=== PATIENT | male | born 1960 | race Caucasian/White ===

== ENCOUNTER 2017-01-24 18:15 | Emergency (ER) | payer BC, OTHER ==
[2017-01-24 18:38] VITALS: BP 117/96; PULSE 93; RESP 18; TEMP 98; O2SAT 99
[2017-01-24] MEDS ORDERED: NS 1,000 ML IV ONE (18:41)
[2017-01-24] MEDS ORDERED: KETOROLAC 30 MG/1 ML SDV IVP ONE (18:45)
[2017-01-24] MEDS ORDERED: ONDANSETRON 4 MG/2 ML VIAL IVP ONE (18:45)
--- NOTE | 2017-01-24 18:51 | UCPHY ---
H & P Patient Type: New Chief Complaint Nursing Narrative: c/o 3 days of N/V/D Time Seen by Provider: 01/24/17 18:45 HPI/ROS: This patient complains of feeling over the past 48-72 hours. He noticed a cough starting Saturday, 2 days prior to arrival. He has associated myalgias. He describes left shoulder pain as well that is moderate to severe after a rotator cuff surgical repair earlier in the month. He has not been able to take his tramadol due to nausea and vomiting associated with the symptoms. He also developed loose stools starting today with 4 episodes of loose brown stool. He has associated fatigue. ROS: No high fevers or chills. HEENT: He denies any headache. No nasal congestion. Pulmonary: No shortness of breath. No pleuritic pain. He does complain of chest wall and upper belly wall tenderness or pain due to frequent coughing-feels this is muscular. Cardiovascular: No lightheadedness. No calf swelling or pain. GI: No lower belly pain. : Reports mild testicular ache bilaterally. He has noticed any dysuria. He has mild back pain he thinks is muscular. 10 point ROS is otherwise negative. Source: Patient - Personal History Current Tetanus Diphtheria and Acellular Pertussis (TDAP): Yes - Medical/Surgical History PMH: Left rotator cuff surgical repair early in January. Otherwise healthy Other PMH: Lt shoulder surg - Family History Significant Family History: No pertinent family hx - Social History Smoking Status: Never smoked Alcohol Use: Occasionally Drug Use: None Additional Social History: No recent foreign travel - Physical Exam Exam: General Appearance: Alert, no distress. Eyes: Pupils equal and round no pallor or injection. ENT, Mouth: Mucous membranes moist. Respiratory: Clear to auscultation bilaterally. No rales, rhonchi wheezes are noted. Cardiovascular: Regular rate and rhythm. Gastrointestinal: Mild bilateral upper belly tenderness that he attributes to muscle pain from coughing. No organomegaly. No lower belly tenderness. Back: No CVA tenderness : No testicular tenderness Neurological: GCS 15 with no deficits Skin: Warm and dry, no rashes. Musculoskeletal: Neck is supple nontender. Extremities atraumatic normal except for left shoulder Left shoulder: Patient has tenderness at the apex of the shoulder with limited range of motion. Psychiatric: Mood and affect are normal DIFFERENTIAL DIAGNOSIS: After history and physical exam differential diagnosis was considered for influenza, pneumonia, bronchitis, gastroenteritis, doubt surgical site infection, prostatitis, epididymitis, pyelonephritis Constitutional: Initial Vital Signs Temperature (C) 36.6 C 01/24/17 18:35 Heart Rate 93 01/24/17 18:35 Respiratory Rate 18 01/24/17 18:35 Blood Pressure 117/96 H 01/24/17 18:35 O2 Sat (%) 99 01/24/17 18:35 O2 Delivery Mode Room Air Allergies/Adverse Reactions: acetaminophen [From Percocet] Allergy (Verified 01/24/17 18:34) oxycodone HCl [From Percocet] Allergy (Verified 01/24/17 18:34) Penicillins Allergy (Verified 01/24/17 18:34) tramadol Allergy (Verified 01/24/17 18:34) Home Medications: Medication Instructions Recorded Guaifenesin/Codeine Phosphate 5 - 10 ml PO Q6 PRN #120 ml 01/24/17 [Guaifenesin-Codeine Liquid] Ondansetron Odt [Zofran Odt] 4 - 8 mg PO Q4PRN PRN #4 tab 01/24/17 Oseltamivir Phosphate [Tamiflu 75 75 mg PO BID #10 cap 01/24/17 mg (*)] Medical Decision Making ED Course/Re-evaluation: IV normal saline bolus, Toradol and Zofran with marked improvement in his symptoms. Review of his labs reveal no abnormal findings other than increased hemoglobin consistent with hemoconcentration from dehydration. I counseled patient regarding this. His rapid influenza is positive. I counseled him regarding influenza. Will provide albuterol inhaler for associated viral bronchitis. - Data Points Laboratory Results: Laboratory Results 01/24/17 18:55 01/24/17 18:55 01/24/17 01/24/17 01/24/17 18:55 18:55 18:32 WBC 4.94 10^3/uL 10^3/uL (3.80-9.50) RBC 5.58 10^6/uL 10^6/uL (4.40-6.38) Hgb 17.9 g/dL H g/dL (13.7-17.5) Hct 51.5 % H % (40.0-51.0) MCV 92.3 fL fL (81.5-99.8) MCH 32.1 pg pg (27.9-34.1) MCHC 34.8 g/dL g/dL (32.4-36.7) RDW 12.6 % % (11.5-15.2) Plt Count 152 10^3/uL 10^3/uL (150-400) MPV 10.0 fL fL (8.7-11.7) Neut % (Auto) 60.6 % % (39.3-74.2) Lymph % (Auto) 20.2 % % (15.0-45.0) Gilmer % (Auto) 18.0 % H % (4.5-13.0) Eos % (Auto) 0.4 % L % (0.6-7.6) Baso % (Auto) 0.6 % % (0.3-1.7) Nucleat RBC Rel Count 0.0 % % (0.0-0.2) Absolute Neuts (auto) 2.99 10^3/uL 10^3/uL (1.70-6.50) Absolute Lymphs (auto) 1.00 10^3/uL 10^3/uL (1.00-3.00) Absolute Monos (auto) 0.89 10^3/uL H 10^3/uL (0.30-0.80) Absolute Eos (auto) 0.02 10^3/uL L 10^3/uL (0.03-0.40) Absolute Basos (auto) 0.03 10^3/uL 10^3/uL (0.02-0.10) Absolute Nucleated RBC 0.00 10^3/uL 10^3/uL (0-0.01) Immature Gran % 0.2 % % (0.0-1.1) Immature Gran # 0.01 10^3/uL 10^3/uL (0.00-0.10) Sodium 139 mEq/L mEq/L (134-144) Potassium 4.1 mEq/L mEq/L (3.5-5.2) Chloride 100 mEq/L mEq/L (97-110) Carbon Dioxide 24 mEq/l mEq/l (22-31) Anion Gap 15 mEq/L mEq/L (8-16) BUN 16 mg/dL mg/dL (7-23) Creatinine 1.0 mg/dL mg/dL (0.7-1.3) Estimated GFR > 60 Glucose 90 mg/dL mg/dL (70-100) Calcium 9.1 mg/dL mg/dL (8.5-10.4) Influenza Typ A,B (DFA) POSITIVE FOR FLU B H (NEGATIVE) Medications Given: Discontinued Medications Albuterol Sulfate (Proventil Inh Prepack) 1 mdi TAKEHOME EDNOW ONE Stop: 01/24/17 19:51 Last Admin: 01/24/17 20:01 Dose: 1 mdi Sodium Chloride (Ns) 1,000 mls @ 0 mls/hr IV ONCE ONE PRN Reason: Wide Open Stop: 01/24/17 18:42 Last Admin: 01/24/17 18:58 Dose: 1,000 mls Ketorolac Tromethamine (Toradol) 30 mg IVP EDNOW ONE Stop: 01/24/17 18:46 Last Admin: 01/24/17 18:58 Dose: 30 mg Ondansetron HCl (Zofran) 4 mg IVP EDNOW ONE Stop: 01/24/17 18:46 Last Admin: 01/24/17 18:59 Dose: 4 mg Oseltamivir Phosphate (Tamiflu) 75 mg PO EDNOW ONE Stop: 01/24/17 19:43 Last Admin: 01/24/17 20:02 Dose: 75 mg Departure - Departure Disposition: Home, Routine, Self-Care Clinical Impression: Influenza B Vomiting Qualifiers: Vomiting type: unspecified Vomiting Intractability: non-intractable Nausea presence: with nausea Qualified Code(s): R11.2 - Nausea with vomiting, unspecified Condition: Good Instructions: Influenza (ED), Acute Nausea and Vomiting (ED) Additional Instructions: Diagnosis: 1. Influenza B 2. Vomiting Plan: Drink plenty fluids Light diet Zofran nausea medicine Tamiflu as prescribed Albuterol inhaler for cough, wheeze or shortness of breath Guaifenesin with codeine for cough prevents sleep Tylenol for fevers or aches if needed Return for any significant worsening despite the treatment plan Referrals: NONE *PRIMARY CARE P,. [Primary Care Provider] - As per Instructions Prescriptions: Guaifenesin/Codeine Phosphate [Guaifenesin-Codeine Liquid] 5 - 10 ml PO Q6 PRN # 120 ml PRN Reason: Cough Ondansetron Odt [Zofran Odt] 4 - 8 mg PO Q4PRN PRN #4 tab PRN Reason: Vomiting Oseltamivir Phosphate [Tamiflu 75 mg (*)] 75 mg PO BID #10 cap - PQRS PQRS Measurement: NA
[2017-01-24 19:00] LABS: % IMMATURE GRANULYOCYTES 0.2 % (0.0-1.1); ABSOLUTE IMMATURE GRANULOCYTES 0.01 10^3/uL (0.00-0.10); ADD DIFF? NO; ADD MORPH? NO; ADD SCAN? NO; ATYPICAL LYMPHOCYTE FLAG 10 (0-99); FRAGMENT RBC FLAG 0 (0-99); HEMATOCRIT 51.5 % (40.0-51.0); HEMOGLOBIN 17.9 g/dL (13.7-17.5); LEFT SHIFT FLG 0 (0-99); LIPEMIA HEMOLYSIS FLAG 90 (0-99); MEAN CELL HEMOGLOBIN 32.1 pg (27.9-34.1); MEAN CELL HEMOGLOBIN CONCENTR. 34.8 g/dL (32.4-36.7); MEAN CELL VOLUME 92.3 fL (81.5-99.8); PLATELET CLUMPS FLAG 0 (0-99); PLATELET COUNT 152 10^3/uL (150-400); RED BLOOD CELL COUNT 5.58 10^6/uL (4.40-6.38); RED CELL DISTRIBUTION WIDTH 12.6 % (11.5-15.2)
[2017-01-24 19:15] LABS: ANION GAP 15 mEq/L (8-16); CALCIUM 9.1 mg/dL (8.5-10.4); CARBON DIOXIDE 24 mEq/l (22-31); CHLORIDE 100 mEq/L (97-110); GLOMERULAR FILTRATION RATE > 60; GLUCOSE 90 mg/dL (70-100); POTASSIUM 4.1 mEq/L (3.5-5.2); SODIUM 139 mEq/L (134-144)
[2017-01-24] MEDS ORDERED: OSELTAMIVIR PHOSPHATE 75 MG CAP PO ONE (19:42)
[2017-01-24] MEDS ORDERED: ALBUTEROL INH PREPACK MDI TAKEHOME ONE ×2 (19:50)
== END 2017-01-24 20:01 | disposition home or self-care (01) ==
LOC: CED 18:15
DX: J10.1 Influenza due to other identified influenza virus with other respiratory manifestations (principal); R11.2 Nausea with vomiting, unspecified; Z98.890 Other specified postprocedural states
CPT/HCPCS: 80048-PO; 85025-PO; 87400-PO; 96361-PO; 96374-PO; 96375-PO; 99205-PO; G0463-PO; J1885; J2405